=== PATIENT | female | born 1935 | race Caucasian/White ===

== ENCOUNTER 2021-12-28 12:10 | Outpatient (CLI) | payer MEDICARE | END 2021-12-28 12:11 | disposition home or self-care (01) | LOC: TBSIIMAG 12:10 | PROVIDERS: ATTEND Neurological Surgery | DX: M54.50 Low back pain, unspecified (principal); M51.26 Other intervertebral disc displacement, lumbar region; M48.061 Spinal stenosis, lumbar region without neurogenic claudication; M51.86 Other intervertebral disc disorders, lumbar region; M51.87 Other intervertebral disc disorders, lumbosacral region; M48.07 Spinal stenosis, lumbosacral region | CPT/HCPCS: 72148 ==

== ENCOUNTER 2024-05-26 20:15 | Emergency (ER) | payer MEDICARE ==
[2024-05-26 21:08] LABS: #Basophils Less than 0.03 10x3/uL (0.0-0.2); %Basophils 0.1 % (0.0-1.0); %Eosinophils 7.1 % (0.0-10.0); %Lymphocytes 26.4 % (21.0-51.0); %Neutrophils 56.1 % (42.0-75.0); Hematocrit 39.1 % (36.0-47.0); Hemoglobin 12.4 g/dL (12.0-16.0); Mean Corpuscular HGB CONC 31.7 g/dL (32.0-36.0); Mean Corpuscular Hemoglobin 29.5 pg (27.0-31.0); Mean Corpuscular Volume 93.1 fL (78.0-98.0); Mean Platelet Volume 10.9 fL (7.4-10.4); Platelet Count 246 10x3/uL (130-400)
[2024-05-26 21:31] LABS: ALT (SGPT) 15 U/L (8-55); AST (SGOT) 27 U/L (5-34); Albumin 3.4 g/dL (3.4-4.8); Alkaline Phosphatase 66 U/L (40-110); Anion Gap 12 mmol/L (10-20); BUN (Urea Nitrogen) 56 mg/dL (9.8-20.1); Bilirubin, Total 0.3 mg/dL (0.2-1.2); Calc. Creatinine Clearance 0 mL/min (70-130); Calcium 10.4 mg/dL (7.8-10.44); Carbon Dioxide 18 mmol/L (23-31); Chloride 114 mmol/L (98-107); Estimated GFR 17; Globulin 3.9 g/dL (2.4-3.5); Glucose 145 mg/dL (83-110); Lipase 33 U/L (8-78); Magnesium 1.9 mg/dL (1.6-2.6); Potassium 4.2 mmol/L (3.5-5.1); Protein, Total 7.3 g/dL (5.8-8.1); Sodium 140 mmol/L (136-145)
[2024-05-26 21:40] LABS: Troponin I 0.029 ng/mL (< 0.028)
[2024-05-26 22:29] LABS: Troponin I 0.027 ng/mL (< 0.028)
[2024-05-26] MEDS ORDERED: hydrALAZINE 20 MG/ML VIAL ONE (22:38)
== END 2024-05-26 23:41 | disposition home or self-care (01) ==
LOC: ERS 20:15
DX: I10 Essential (primary) hypertension (principal); Z79.899 Other long term (current) drug therapy
CPT/HCPCS: 71045; 80053; 83690; 83735; 83880; 84484 ×2; 85025; 93005; 94760; 96374; 99284; J0360; 36415

== ENCOUNTER 2024-09-13 12:11 | Inpatient (IN) | payer MEDICARE ==
[2024-09-13 13:35] LABS: Bacteria/HPF 4+ HPF (None Seen); Bilirubin Negative (Negative); Blood, Urine 1+ (Negative); CAUTI Indications for Culture Dysuria,urgency,freq; Clarity Extra Turbid (Clear); Glucose, Urine (Dipstick) 70 mg/dL (Negative); Ketone, Urine Negative (Negative); Leukocyte 500 Leu/uL (Negative); Nitrite Negative (Negative); Protein, Urine (Dipstick) 300 mg/dL (Neg-Trace); Specific Gravity, Urine 1.004 (1.002-1.036); Squamous Epithelial None Seen HPF (0-3); Urobilinogen Normal mg/dL (Less than 2); WBC/HPF Greater than 50 HPF (0-3)
[2024-09-13 13:42] LABS: Urine Culture Reflex Yes Yes
[2024-09-13 13:50] LABS: Troponin I 0.048 ng/mL (< 0.028)
[2024-09-13 14:16] LABS: #Basophils Less than 0.03 10x3/uL (0.0-0.2); %Basophils 0.3 % (0.0-1.0); %Eosinophils 6.1 % (0.0-10.0); %Lymphocytes 28.2 % (21.0-51.0); %Monocytes 12.7 % (0.0-10.0); %Neutrophils 52.1 % (42.0-75.0); Hematocrit 35.4 % (36.0-47.0); Hemoglobin 11.3 g/dL (12.0-16.0); Mean Corpuscular HGB CONC 31.9 g/dL (32.0-36.0); Mean Corpuscular Hemoglobin 29.9 pg (27.0-31.0); Mean Corpuscular Volume 93.7 fL (78.0-98.0); Platelet Count 207 10x3/uL (130-400); RBC Distribution Width 13.7 % (11.5-14.5); Red Blood Cell (RBC) Count 3.78 mill/uL (4.20-5.40)
[2024-09-13 14:32] LABS: ALT (SGPT) 23 U/L (8-55); AST (SGOT) 32 U/L (5-34); Albumin 3.2 g/dL (3.4-4.8); Alkaline Phosphatase 69 U/L (40-110); Anion Gap 13 mmol/L (10-20); BUN (Urea Nitrogen) 54 mg/dL (9.8-20.1); Bilirubin, Total 0.4 mg/dL (0.2-1.2); Calc. Creatinine Clearance 0 mL/min (70-130); Calcium 9.5 mg/dL (7.8-10.44); Carbon Dioxide 20 mmol/L (23-31); Chloride 113 mmol/L (98-107); Estimated GFR 12; Globulin 4.1 g/dL (2.4-3.5); Glucose 126 mg/dL (83-110); Protein, Total 7.3 g/dL (5.8-8.1); Sodium 142 mmol/L (136-145)
[2024-09-13] MEDS ORDERED: cefTRIAXone (ROCEPHIN) 2 GM VIAL ONE (15:16)
[2024-09-13] MEDS ORDERED: Sodium Chloride 0.9% 100 ML ONE (15:17)
[2024-09-13] MEDS ORDERED: Dextrose 50% Abboject 50 ML SYRINGE SLOW IVP PRN (16:13)
[2024-09-13] MEDS ORDERED: Glucagon 1 MG/ML KIT IM PRN (16:13)
[2024-09-13] MEDS ORDERED: Dextrose 5% in Water 1,000 ML IV PRN (16:13)
[2024-09-13] MEDS: NIFEdipine XL 60 MG ER.TAB PO SCH (17:18)
[2024-09-13 17:26] VITALS: BMI 22.4
[2024-09-13 17:29] LABS: Troponin I 0.034 ng/mL (< 0.028)
[2024-09-13] MEDS: Metoprolol Tartrate 100 MG TAB PO SCH (17:51)
[2024-09-13] MEDS ORDERED: hydrALAZINE 25 MG TAB ONE (18:07)
[2024-09-13] MEDS: hydrALAZINE 25 MG TAB PO SCH (18:42)
[2024-09-13] MEDS: Sodium Bicarbonate 75 MEQ in Dextrose 5 %-0.45 % NaCl 1,000 ML IV SCH (18:43)
[2024-09-13 21:33] LABS: Troponin I 0.043 ng/mL (< 0.028)
[2024-09-13] MEDS: Apixaban 2.5 MG TAB PO SCH (21:55)
[2024-09-14 05:10] LABS: #Basophils Less than 0.03 10x3/uL (0.0-0.2); %Basophils 0.3 % (0.0-1.0); %Eosinophils 8.6 % (0.0-10.0); %Lymphocytes 27.9 % (21.0-51.0); %Monocytes 11.9 % (0.0-10.0); Hematocrit 29.8 % (36.0-47.0); Hemoglobin 9.3 g/dL (12.0-16.0); Mean Corpuscular HGB CONC 31.2 g/dL (32.0-36.0); Mean Corpuscular Volume 96.1 fL (78.0-98.0); Mean Platelet Volume 11.2 fL (7.4-10.4); Platelet Count 218 10x3/uL (130-400); RBC Distribution Width 13.6 % (11.5-14.5)
[2024-09-14 05:29] LABS: Anion Gap 11 mmol/L (10-20); BUN (Urea Nitrogen) 50 mg/dL (9.8-20.1); Calc. Creatinine Clearance 11 mL/min (70-130); Calcium 8.7 mg/dL (7.8-10.44); Carbon Dioxide 19 mmol/L (23-31); Chloride 113 mmol/L (98-107); Estimated GFR 13; Glucose 142 mg/dL (83-110); Potassium 4.3 mmol/L (3.5-5.1); Sodium 139 mmol/L (136-145)
[2024-09-14] MEDS ORDERED: Epoetin (ESRD) 20,000 UNITS/ML MDV SC SCH (08:30)
[2024-09-14] MEDS: NIFEdipine XL 90 MG ER.TAB PO SCH (08:46)
[2024-09-14] MEDS ORDERED: Metoprolol Tartrate 100 MG TAB PO SCH (09:00)
[2024-09-14] MEDS: Sodium Bicarbonate 75 MEQ in Dextrose 5 %-0.45 % NaCl 1,000 ML IV SCH (09:42)
[2024-09-14] MEDS: Albumin 25% 25 GM (100 mL) BOT IVPB SCH (12:46)
[2024-09-14] MEDS: Insulin Lispro 100 UNIT/ML 10 ML VIAL SC PRN (13:23)
[2024-09-14] MEDS: EPOETIN ALFA-EPBX (ESRD) 10,000 UNITS/ML VIAL SC SCH (14:01)
[2024-09-14] MEDS: Ferrous Sulfate 325 MG TAB PO SCH (16:11)
[2024-09-14] MEDS: hydrALAZINE 25 MG TAB PO SCH (16:11)
[2024-09-14] MEDS: cefTRIAXone\\ROCEPHIN 1 GM in Sodium Chloride 0.9% 100 ML IVPB SCH (16:14)
[2024-09-14] MEDS: Nitroglycerin 0.4 MG TAB (25 Tab Bottle) SL PRN (20:17)
[2024-09-14] MEDS: Nitroglycerin 2% Ointment 1 INCH/1 GM Packet TOP SCH (20:28)
[2024-09-14] MEDS: Nitroglycerin 0.4 MG TAB (25 Tab Bottle) ONE (20:38)
[2024-09-14] MEDS ORDERED: Insulin Glargine 30 UNITS/0.3 ML VIAL SC SCH (21:00)
[2024-09-14 21:12] LABS: #Basophils Less than 0.03 10x3/uL (0.0-0.2); %Basophils 0.1 % (0.0-1.0); %Eosinophils 5.3 % (0.0-10.0); %Lymphocytes 20.3 % (21.0-51.0); %Neutrophils 64.9 % (42.0-75.0); Hematocrit 27.5 % (36.0-47.0); Hemoglobin 8.7 g/dL (12.0-16.0); Mean Corpuscular HGB CONC 31.6 g/dL (32.0-36.0); Mean Corpuscular Hemoglobin 30.2 pg (27.0-31.0); Mean Corpuscular Volume 95.5 fL (78.0-98.0); Mean Platelet Volume 11.3 fL (7.4-10.4); Platelet Count 209 10x3/uL (130-400); RBC Distribution Width 13.5 % (11.5-14.5); Red Blood Cell (RBC) Count 2.88 mill/uL (4.20-5.40)
[2024-09-14 21:27] LABS: ALT (SGPT) 16 U/L (8-55); AST (SGOT) 30 U/L (5-34); Albumin 3.3 g/dL (3.4-4.8); Alkaline Phosphatase 53 U/L (40-110); Anion Gap 13 mmol/L (10-20); BUN (Urea Nitrogen) 50 mg/dL (9.8-20.1); Bilirubin, Total 0.3 mg/dL (0.2-1.2); Calc. Creatinine Clearance 11 mL/min (70-130); Calcium 8.7 mg/dL (7.8-10.44); Carbon Dioxide 18 mmol/L (23-31); Chloride 109 mmol/L (98-107); Estimated GFR 11; Globulin 2.8 g/dL (2.4-3.5); Glucose 230 mg/dL (83-110); Potassium 4.3 mmol/L (3.5-5.1); Protein, Total 6.1 g/dL (5.8-8.1); Sodium 136 mmol/L (136-145)
[2024-09-14 21:31] LABS: Troponin I 0.026 ng/mL (< 0.028)
[2024-09-14] MEDS ORDERED: hydrALAZINE 25 MG TAB PO PRN (21:40)
[2024-09-14] MEDS: Insulin Glargine 30 UNITS/0.3 ML VIAL SC SCH (22:11)
[2024-09-14] MEDS: hydrALAZINE 20 MG/ML VIAL SLOW IVP SCH (22:19)
[2024-09-14 23:45] LABS: Troponin I 0.026 ng/mL (< 0.028)
[2024-09-15] MEDS: Ondansetron ODT 4 MG TAB PO PRN (00:53)
[2024-09-15 05:08] LABS: #Basophils 0.03 10x3/uL (0.0-0.2); %Basophils 0.3 % (0.0-1.0); %Eosinophils 2.1 % (0.0-10.0); %Lymphocytes 16.9 % (21.0-51.0); %Monocytes 11.7 % (0.0-10.0); %Neutrophils 68.7 % (42.0-75.0); Hematocrit 27.6 % (36.0-47.0); Hemoglobin 8.8 g/dL (12.0-16.0); Mean Corpuscular HGB CONC 31.9 g/dL (32.0-36.0); Mean Corpuscular Hemoglobin 30.4 pg (27.0-31.0); Mean Corpuscular Volume 95.5 fL (78.0-98.0); Mean Platelet Volume 11.1 fL (7.4-10.4); Platelet Count 198 10x3/uL (130-400); RBC Distribution Width 13.7 % (11.5-14.5); Red Blood Cell (RBC) Count 2.89 mill/uL (4.20-5.40)
[2024-09-15 05:27] LABS: Anion Gap 13 mmol/L (10-20); BUN (Urea Nitrogen) 51 mg/dL (9.8-20.1); Calc. Creatinine Clearance 11 mL/min (70-130); Calcium 8.9 mg/dL (7.8-10.44); Carbon Dioxide 19 mmol/L (23-31); Chloride 110 mmol/L (98-107); Estimated GFR 11; Glucose 129 mg/dL (83-110); Potassium 4.1 mmol/L (3.5-5.1); Sodium 138 mmol/L (136-145)
[2024-09-15 05:30] LABS: ALT (SGPT) 16 U/L (8-55); AST (SGOT) 25 U/L (5-34); Albumin 3.6 g/dL (3.4-4.8); Alkaline Phosphatase 52 U/L (40-110); Anion Gap 13 mmol/L (10-20); BUN (Urea Nitrogen) 51 mg/dL (9.8-20.1); Bilirubin, Total 0.4 mg/dL (0.2-1.2); Calc. Creatinine Clearance 11 mL/min (70-130); Carbon Dioxide 19 mmol/L (23-31); Chloride 110 mmol/L (98-107); Estimated GFR 11; Globulin 2.8 g/dL (2.4-3.5); Glucose 131 mg/dL (83-110); Phosphorus 4.4 mg/dL (2.3-4.7); Potassium 4.1 mmol/L (3.5-5.1); Protein, Total 6.4 g/dL (5.8-8.1); Sodium 138 mmol/L (136-145)
[2024-09-15] MEDS: Levothyroxine Sodium 125 MCG TAB PO SCH (06:02)
[2024-09-15] MEDS ORDERED: Sodium Chloride 0.9% 1,000 ML IV SCH (09:30)
[2024-09-15] MEDS ORDERED: Heparin 10,000 UNITS/ 10 ML VIAL ONE (09:52)
[2024-09-15] MEDS: Ipratropium/Albuterol 3 ML NEB NEB PRN (12:00)
[2024-09-15] MEDS: Acetaminophen 325 MG TAB PO PRN (15:38)
[2024-09-15 16:58] LABS: HBSAB Concentration 41.42 mIU/mL; HBsAg Index 0.38 S/CO (0-0.99); Hep B Core Total Ab NONREACTIVE (NonReactive); Hep B Core Total Index 0.13 S/CO (0-0.79); Hep B Surf AB REACTIVE (NonReactive); Hep B Surf Ag NONREACTIVE S/CO (NonReactive); Hep C IgG Ab NONREACTIVE S/CO (NonReactive); Hep C Index 0.07 S/CO (0-0.79)
[2024-09-15] MEDS: Sodium Bicarbonate Tab 325 MG TAB PO SCH (18:06)
[2024-09-15] MEDS ORDERED: Dextrose 5% in Water 1,000 ML IV PRN (21:59)
[2024-09-15] MEDS ORDERED: Dextrose 50% Abboject 50 ML SYRINGE SLOW IVP PRN (21:59)
[2024-09-15] MEDS ORDERED: Glucagon 1 MG/ML KIT IM PRN (21:59)
[2024-09-15] MEDS: Tuberculin PPD 0.1 ML SYRINGE (10 TEST VIAL) I-DERMAL SCH (22:13)
[2024-09-15] MEDS: Insulin Lispro 100 UNIT/ML 10 ML VIAL SC PRN (22:13)
[2024-09-15] MEDS ORDERED: hydrALAZINE 20 MG/ML VIAL SLOW IVP SCH (23:45)
[2024-09-16] MEDS: hydrALAZINE 20 MG/ML VIAL SLOW IVP PRN (00:08)
[2024-09-16 04:32] LABS: #Basophils Less than 0.03 10x3/uL (0.0-0.2); %Basophils 0.2 % (0.0-1.0); %Eosinophils 0.3 % (0.0-10.0); %Lymphocytes 16.8 % (21.0-51.0); %Neutrophils 68.4 % (42.0-75.0); Hematocrit 27.6 % (36.0-47.0); Hemoglobin 8.6 g/dL (12.0-16.0); Mean Corpuscular HGB CONC 31.2 g/dL (32.0-36.0); Mean Corpuscular Hemoglobin 30.1 pg (27.0-31.0); Mean Corpuscular Volume 96.5 fL (78.0-98.0); Mean Platelet Volume 11.5 fL (7.4-10.4); Platelet Count 184 10x3/uL (130-400); RBC Distribution Width 13.7 % (11.5-14.5); Red Blood Cell (RBC) Count 2.86 mill/uL (4.20-5.40)
[2024-09-16 04:46] LABS: ALT (SGPT) 12 U/L (8-55); AST (SGOT) 19 U/L (5-34); Albumin 3.2 g/dL (3.4-4.8); Alkaline Phosphatase 45 U/L (40-110); Anion Gap 11 mmol/L (10-20); BUN (Urea Nitrogen) 38 mg/dL (9.8-20.1); Bilirubin, Total 0.6 mg/dL (0.2-1.2); Calc. Creatinine Clearance 13 mL/min (70-130); Carbon Dioxide 25 mmol/L (23-31); Chloride 104 mmol/L (98-107); Estimated GFR 14; Globulin 3.1 g/dL (2.4-3.5); Glucose 126 mg/dL (83-110); Potassium 4.1 mmol/L (3.5-5.1); Protein, Total 6.3 g/dL (5.8-8.1); Sodium 136 mmol/L (136-145)
[2024-09-16] MEDS ORDERED: Heparin 10,000 UNITS/ 10 ML VIAL ONE (08:49)
[2024-09-17 04:34] LABS: #Basophils Less than 0.03 10x3/uL (0.0-0.2); %Basophils 0.2 % (0.0-1.0); %Eosinophils 3.8 % (0.0-10.0); %Lymphocytes 16.7 % (21.0-51.0); %Monocytes 13.1 % (0.0-10.0); %Neutrophils 65.8 % (42.0-75.0); Hematocrit 27.3 % (36.0-47.0); Hemoglobin 8.7 g/dL (12.0-16.0); Mean Corpuscular HGB CONC 31.9 g/dL (32.0-36.0); Mean Corpuscular Hemoglobin 29.8 pg (27.0-31.0); Mean Corpuscular Volume 93.5 fL (78.0-98.0); Mean Platelet Volume 11.5 fL (7.4-10.4); Platelet Count 173 10x3/uL (130-400); RBC Distribution Width 13.4 % (11.5-14.5); Red Blood Cell (RBC) Count 2.92 mill/uL (4.20-5.40)
[2024-09-17 04:53] LABS: Anion Gap 12 mmol/L (10-20); BUN (Urea Nitrogen) 30 mg/dL (9.8-20.1); Calc. Creatinine Clearance 12 mL/min (70-130); Calcium 8.6 mg/dL (7.8-10.44); Carbon Dioxide 25 mmol/L (23-31); Chloride 101 mmol/L (98-107); Estimated GFR 13; Glucose 147 mg/dL (83-110); Sodium 134 mmol/L (136-145)
[2024-09-17] MEDS ORDERED: Heparin 10,000 UNITS/ 10 ML VIAL ONE (08:57)
[2024-09-17] MEDS: Heparin 5,000 UNITS/ML VIAL SC SCH (09:48)
[2024-09-18 05:59] LABS: Chloride 100 mmol/L (98-107); Potassium 3.7 mmol/L (3.5-5.1); Sodium 135 mmol/L (136-145)
[2024-09-18 06:00] LABS: Calcium 8.7 mg/dL (7.8-10.44)
[2024-09-18 06:01] LABS: Glucose 143 mg/dL (83-110)
[2024-09-18 06:02] LABS: Anion Gap 11 mmol/L (10-20); Carbon Dioxide 28 mmol/L (23-31)
[2024-09-18 06:04] LABS: BUN (Urea Nitrogen) 17 mg/dL (9.8-20.1); Calc. Creatinine Clearance 14 mL/min (70-130); Estimated GFR 16
[2024-09-18] MEDS ORDERED: Lidocaine 2% PF 5 ML VIAL ONE (06:27)
[2024-09-18] MEDS ORDERED: EPINEPHrine 1 MG/ML VIAL ONE (06:27)
[2024-09-18] MEDS ORDERED: Heparin 10,000 UNITS/ 10 ML VIAL ONE ×3 (06:27→08:59)
[2024-09-18] MEDS ORDERED: Heparin 5,000 UNITS/ML VIAL ONE (06:27)
[2024-09-18] MEDS ORDERED: Bupivacaine PF 0.5% 30 ML VIAL ONE (06:28)
[2024-09-18] MEDS ORDERED: PROPOFOL 20 ML ONE (06:32)
[2024-09-18] MEDS ORDERED: PHENYLEPHRINE-NS 100 MCG/ML 10 ML SYRINGE ONE (06:32)
[2024-09-18] MEDS ORDERED: fentaNYL 50 mcg/mL 1 mL Vial ONE ×3 (06:32→10:34)
[2024-09-18] MEDS ORDERED: Lidocaine 1% PF 5 ML VIAL ONE (06:32)
[2024-09-18] MEDS ORDERED: Glycopyrrolate 0.2 MG/ML 5 ML SYRINGE ONE (08:03)
[2024-09-18] MEDS ORDERED: Protamine Sulfate 50 MG/5 ML VIAL ONE (08:53)
[2024-09-18] MEDS ORDERED: HYDROmorphone 2 MG/ML VIAL ONE (09:09)
[2024-09-18] MEDS ORDERED: Ondansetron PF 4 MG/2 ML Vial ONE (09:45)
[2024-09-18] MEDS ORDERED: traMADol HCl 50 MG TAB PO PRN (10:12)
[2024-09-18] MEDS: Acetaminophen 500 MG TAB PO SCH (14:32)
[2024-09-18] MEDS: READ PPD TEST SITE PO SCH (15:52)
[2024-09-18] MEDS: hydrALAZINE 20 MG/ML VIAL SLOW IVP PRN (20:48)
[2024-09-19] MEDS: Apixaban 2.5 MG TAB PO SCH (08:16)
[2024-09-20] MEDS ORDERED: Heparin 10,000 UNITS/ 10 ML VIAL ONE (09:51)
[2024-09-20 12:28] VITALS: BMI 23.6
[2024-09-20 16:04] VITALS: BP 151/68; TEMP 98
== END 2024-09-20 17:10 | DRG 673 ==
LOC: ERS 12:11 → ERHOLD 15:55 → 2NO 20:01
PROVIDERS: ADMIT Internal Medicine; ATTEND Family Medicine
PROC: 30233J1 Transfusion of Nonautologous Serum Albumin into Peripheral Vein, Percutaneous Approach (ICD-10-PCS; 2024-09-14)
PROC: 06HY33Z Insertion of Infusion Device into Lower Vein, Percutaneous Approach (ICD-10-PCS; principal; 2024-09-15)
PROC: 0JH63XZ Insertion of Tunneled Vascular Access Device into Chest Subcutaneous Tissue and Fascia, Percutaneous Approach (ICD-10-PCS; 2024-09-18)
PROC: 02HV33Z Insertion of Infusion Device into Superior Vena Cava, Percutaneous Approach (ICD-10-PCS; 2024-09-18)
PROC: 3E033XZ Introduction of Vasopressor into Peripheral Vein, Percutaneous Approach (ICD-10-PCS; 2024-09-18)
PROC: 5A1D70Z Performance of Urinary Filtration, Intermittent, Less than 6 Hours Per Day (ICD-10-PCS; 2024-09-20)
DX: N17.9 Acute kidney failure, unspecified (principal); I50.33 Acute on chronic diastolic (congestive) heart failure; E87.20 Acidosis, unspecified; N39.0 Urinary tract infection, site not specified; I48.20 Chronic atrial fibrillation, unspecified; I13.2 Hypertensive heart and chronic kidney disease with heart failure and with stage 5 chronic kidney disease, or end stage renal disease; E86.0 Dehydration; I16.0 Hypertensive urgency; Z88.8 Allergy status to other drugs, medicaments and biological substances; E78.5 Hyperlipidemia, unspecified; E11.22 Type 2 diabetes mellitus with diabetic chronic kidney disease; Z90.710 Acquired absence of both cervix and uterus; Z98.890 Other specified postprocedural states; Z79.01 Long term (current) use of anticoagulants; Z79.899 Other long term (current) drug therapy; D63.1 Anemia in chronic kidney disease; E03.9 Hypothyroidism, unspecified; Z79.4 Long term (current) use of insulin; N18.6 End stage renal disease; Z99.2 Dependence on renal dialysis
CPT/HCPCS: 36415; 36416; 71045; 80048; 80053; 81001; 83605; 83880; 83970; 84100; 84484; 85025; 86580; 86704; 86706; 86803; 86850; 86900; 86901; 87040; 87077; 87086; 87186; 87340; 90935; 93005; 93010; 93970; 94640; 96361; 96365; A6258; C1750; C1751; G0257; J0171; J0360; J0665; J0696; J1642; J1644; J1815; J2405; J2704; J2720; J3010; J7042; J7620; P9047; Q0162; Q5105

== ENCOUNTER 2024-12-27 08:51 | Inpatient (IN) | payer MEDICARE ==
[2024-12-27 10:34] LABS: #Basophils Less than 0.03 10x3/uL (0.0-0.2); #Eosinophils Less than 0.03 10x3/uL (0.0-0.7); %Basophils 0.1 % (0.0-1.0); %Lymphocytes 3.2 % (21.0-51.0); %Monocytes 6.1 % (0.0-10.0); %Neutrophils 89.7 % (42.0-75.0); Hematocrit 35.5 % (36.0-47.0); Hemoglobin 11.6 g/dL (12.0-16.0); Mean Corpuscular HGB CONC 32.7 g/dL (32.0-36.0); Mean Corpuscular Hemoglobin 29.6 pg (27.0-31.0); Mean Corpuscular Volume 90.6 fL (78.0-98.0); Mean Platelet Volume 10.6 fL (7.4-10.4); Platelet Count 182 10x3/uL (130-400); RBC Distribution Width 14.9 % (11.5-14.5); Red Blood Cell (RBC) Count 3.92 mill/uL (4.20-5.40)
[2024-12-27 10:49] LABS: Bilirubin Negative (Negative); Blood, Urine Negative (Negative); CAUTI Indications for Culture Pelvic or flank pain; Clarity Clear (Clear); Glucose, Urine (Dipstick) 150 mg/dL (Negative); Ketone, Urine Negative (Negative); Leukocyte 25 Leu/uL (Negative); Nitrite Negative (Negative); Protein, Urine (Dipstick) 600 mg/dL (Neg-Trace); RBC/HPF 0-3 HPF (0-3); Specific Gravity, Urine 1.019 (1.002-1.036); Squamous Epithelial 0-3 HPF (0-3); Urobilinogen Normal mg/dL (Less than 2)
[2024-12-27 10:51] LABS: Bacteria/HPF 1+ HPF (None Seen)
[2024-12-27 10:52] LABS: Urine Culture Reflex Yes Yes
[2024-12-27] MEDS ORDERED: Ondansetron PF 4 MG/2 ML Vial ONE (10:53)
[2024-12-27 10:54] LABS: ALT (SGPT) 10 U/L (Less than 34); AST (SGOT) 37 U/L (11-34); Albumin 3.2 g/dL (3.1-4.5); Alkaline Phosphatase 62 U/L (40-110); Anion Gap 17 mmol/L (10-20); BUN (Urea Nitrogen) 28 mg/dL (9.8-20.1); Bilirubin, Total 0.7 mg/dL (0.3-1.2); Calc. Creatinine Clearance 0 mL/min (70-130); Calcium 9.6 mg/dL (7.8-10.44); Carbon Dioxide 24 mmol/L (23-31); Chloride 102 mmol/L (98-107); Estimated GFR 11; Globulin 4.2 g/dL (2.4-3.5); Glucose 188 mg/dL (83-110); Lipase 15 U/L (8-78); Magnesium 1.9 mg/dL (1.6-2.6); Potassium 3.9 mmol/L (3.5-5.1); Protein, Total 7.4 g/dL (5.8-8.1); Sodium 139 mmol/L (136-145)
[2024-12-27] MEDS ORDERED: cefTRIAXone (ROCEPHIN) 2 GM VIAL ONE (11:16)
[2024-12-27] MEDS ORDERED: Sodium Chloride 0.9% 100 ML ONE (11:16)
[2024-12-27] MEDS ORDERED: Azithromycin 500 MG VIAL ONE (11:16)
[2024-12-27] MEDS ORDERED: Heparin 10,000 UNITS/ 10 ML VIAL ONE (11:30)
[2024-12-27 12:03] VITALS: BMI 22.4
[2024-12-27] MEDS ORDERED: Dextrose 50% Abboject 50 ML SYRINGE SLOW IVP PRN (12:41)
[2024-12-27] MEDS ORDERED: Insulin Lispro 100 UNIT/ML 10 ML VIAL SC PRN (12:41)
[2024-12-27] MEDS ORDERED: Dextrose 5% in Water 1,000 ML IV PRN (12:41)
[2024-12-27] MEDS ORDERED: Glucagon 1 MG/ML KIT IM PRN (12:41)
[2024-12-27] MEDS ORDERED: Calcium Carbonate 500 MG ChewTAB PO PRN (12:41)
[2024-12-27] MEDS ORDERED: Acetaminophen 650 MG Suppository PR PRN (12:41)
[2024-12-27] MEDS ORDERED: Acetaminophen 325 MG TAB PO PRN (12:41)
[2024-12-27] MEDS ORDERED: Ipratropium/Albuterol 3 ML NEB NEB PRN (12:44)
[2024-12-27] MEDS: Donepezil HCl 10 MG TAB PO SCH (21:22)
[2024-12-27] MEDS: Apixaban 2.5 MG TAB PO SCH (21:22)
[2024-12-27] MEDS: hydrALAZINE 25 MG TAB PO SCH (21:22)
[2024-12-27] MEDS: Famotidine/PF 20 mg/2ml Vial SLOW IVP SCH (21:22)
[2024-12-27 22:23] LABS: Legionella Urinary Ag Negative (Negative); Strep pneumo Urine Ag NEGATIVE (NEGATIVE)
[2024-12-28 05:36] LABS: #Basophils 0.03 10x3/uL (0.0-0.2); %Basophils 0.3 % (0.0-1.0); %Eosinophils 2.1 % (0.0-10.0); %Lymphocytes 15.1 % (21.0-51.0); %Monocytes 6.6 % (0.0-10.0); %Neutrophils 75.5 % (42.0-75.0); Hematocrit 30.5 % (36.0-47.0); Hemoglobin 9.8 g/dL (12.0-16.0); Mean Corpuscular HGB CONC 32.1 g/dL (32.0-36.0); Mean Corpuscular Hemoglobin 29.7 pg (27.0-31.0); Mean Corpuscular Volume 92.4 fL (78.0-98.0); Mean Platelet Volume 11.1 fL (7.4-10.4); Platelet Count 169 10x3/uL (130-400); RBC Distribution Width 14.9 % (11.5-14.5)
[2024-12-28] MEDS: Levothyroxine Sodium 125 MCG TAB PO SCH (06:03)
[2024-12-28 06:16] LABS: Anion Gap 14 mmol/L (10-20); BUN (Urea Nitrogen) 15 mg/dL (9.8-20.1); Calc. Creatinine Clearance 15 mL/min (70-130); Calcium 8.8 mg/dL (7.8-10.44); Carbon Dioxide 29 mmol/L (23-31); Chloride 101 mmol/L (98-107); Estimated GFR 17; Glucose 109 mg/dL (83-110); Potassium 3.6 mmol/L (3.5-5.1); Sodium 140 mmol/L (136-145)
[2024-12-28] MEDS: Metoprolol Succinate XL 50 MG ER.TAB PO SCH (09:05)
[2024-12-28] MEDS: Insulin Lispro 100 UNIT/ML 10 ML VIAL SC PRN (12:25)
[2024-12-28] MEDS: cefTRIAXone\\ROCEPHIN 1 GM in Sodium Chloride 0.9% 100 ML IVPB SCH (12:25)
[2024-12-28] MEDS: Azithromycin 500 MG in Sodium Chloride 0.9% 250 ML 250 ML IVPB SCH (12:25)
[2024-12-28 12:56] LABS: Anion Gap 14 mmol/L (10-20); BUN (Urea Nitrogen) 21 mg/dL (9.8-20.1); Calc. Creatinine Clearance 13 mL/min (70-130); Calcium 8.9 mg/dL (7.8-10.44); Carbon Dioxide 28 mmol/L (23-31); Chloride 98 mmol/L (98-107); Estimated GFR 14; Glucose 138 mg/dL (83-110); Potassium 3.7 mmol/L (3.5-5.1); Sodium 136 mmol/L (136-145)
[2024-12-28] MEDS: Labetalol HCl 100 MG/20 ML VIAL SLOW IVP SCH (22:53)
[2024-12-29] MEDS: hydrALAZINE 25 MG TAB PO SCH ×3 (04:36→14:07)
[2024-12-29] MEDS: Metoprolol Succinate XL 50 MG ER.TAB PO SCH (04:37)
[2024-12-29 06:03] LABS: #Basophils Less than 0.03 10x3/uL (0.0-0.2); %Basophils 0.1 % (0.0-1.0); %Eosinophils 3.9 % (0.0-10.0); %Lymphocytes 23.6 % (21.0-51.0); %Monocytes 11.5 % (0.0-10.0); %Neutrophils 60.5 % (42.0-75.0); Hematocrit 29.2 % (36.0-47.0); Hemoglobin 9.4 g/dL (12.0-16.0); Mean Corpuscular HGB CONC 32.2 g/dL (32.0-36.0); Mean Corpuscular Hemoglobin 29.5 pg (27.0-31.0); Mean Corpuscular Volume 91.5 fL (78.0-98.0); Platelet Count 159 10x3/uL (130-400); RBC Distribution Width 14.6 % (11.5-14.5); Red Blood Cell (RBC) Count 3.19 mill/uL (4.20-5.40)
[2024-12-29] MEDS ORDERED: Labetalol HCl 100 MG/20 ML VIAL SLOW IVP PRN (06:10)
[2024-12-29] MEDS: Cefdinir 300 MG CAP PO SCH (09:15)
[2024-12-29] MEDS: Nitroglycerin 2% Ointment 1 INCH/1 GM Packet TOP SCH (16:11)
[2024-12-29] MEDS: NIFEdipine XL 30 MG ER.TAB PO SCH (17:03)
[2024-12-29] MEDS: EPOETIN ALFA-EPBX (ESRD) 10,000 UNITS/ML VIAL SC SCH (17:04)
[2024-12-29] MEDS: cloNIDine 0.1 MG TAB PO SCH (20:41)
[2024-12-29] MEDS: Loratadine 10 MG TAB PO SCH (20:41)
[2024-12-29] MEDS: Insulin Glargine 30 UNITS/0.3 ML VIAL SC SCH (20:42)
[2024-12-30 07:11] LABS: #Basophils Less than 0.03 10x3/uL (0.0-0.2); %Basophils 0.2 % (0.0-1.0); %Eosinophils 5.7 % (0.0-10.0); %Lymphocytes 24.1 % (21.0-51.0); %Monocytes 11.4 % (0.0-10.0); %Neutrophils 58.4 % (42.0-75.0); Hematocrit 30.1 % (36.0-47.0); Mean Corpuscular HGB CONC 33.2 g/dL (32.0-36.0); Mean Corpuscular Hemoglobin 29.6 pg (27.0-31.0); Mean Corpuscular Volume 89.1 fL (78.0-98.0); Mean Platelet Volume 11.5 fL (7.4-10.4); Platelet Count 177 10x3/uL (130-400); RBC Distribution Width 14.6 % (11.5-14.5); Red Blood Cell (RBC) Count 3.38 mill/uL (4.20-5.40)
[2024-12-30 07:38] LABS: Anion Gap 13 mmol/L (10-20); BUN (Urea Nitrogen) 34 mg/dL (9.8-20.1); Calc. Creatinine Clearance 9 mL/min (70-130); Calcium 8.6 mg/dL (7.8-10.44); Carbon Dioxide 26 mmol/L (23-31); Chloride 99 mmol/L (98-107); Estimated GFR 9; Glucose 131 mg/dL (83-110); Potassium 3.2 mmol/L (3.5-5.1); Sodium 135 mmol/L (136-145)
[2024-12-30] MEDS ORDERED: Heparin 10,000 UNITS/ 10 ML VIAL ONE (09:35)
[2024-12-30] MEDS: NIFEdipine XL 30 MG ER.TAB PO SCH (12:48)
[2024-12-31 14:49] LABS: #Basophils Less than 0.03 10x3/uL (0.0-0.2); %Basophils 0.2 % (0.0-1.0); %Eosinophils 5.1 % (0.0-10.0); %Lymphocytes 25.5 % (21.0-51.0); %Monocytes 12.3 % (0.0-10.0); %Neutrophils 56.7 % (42.0-75.0); Hematocrit 30.6 % (36.0-47.0); Hemoglobin 9.8 g/dL (12.0-16.0); Mean Corpuscular Hemoglobin 29.2 pg (27.0-31.0); Mean Corpuscular Volume 91.1 fL (78.0-98.0); Mean Platelet Volume 10.7 fL (7.4-10.4); Platelet Count 180 10x3/uL (130-400); RBC Distribution Width 14.6 % (11.5-14.5); Red Blood Cell (RBC) Count 3.36 mill/uL (4.20-5.40)
[2024-12-31 15:06] LABS: Anion Gap 12 mmol/L (10-20); BUN (Urea Nitrogen) 19 mg/dL (9.8-20.1); Calc. Creatinine Clearance 11 mL/min (70-130); Calcium 8.5 mg/dL (7.8-10.44); Carbon Dioxide 26 mmol/L (23-31); Chloride 100 mmol/L (98-107); Estimated GFR 11; Glucose 196 mg/dL (83-110); Potassium 3.8 mmol/L (3.5-5.1); Sodium 134 mmol/L (136-145)
[2024-12-31] MEDS: Senokot S 8.6-50 MG TAB PO PRN (15:11)
[2024-12-31 15:12] LABS: Troponin I 0.038 ng/mL (< 0.028)
[2024-12-31 19:15] LABS: Bilirubin Negative (Negative); Blood, Urine Negative (Negative); CAUTI Indications for Culture Alt mental st,lethar; Clarity Turbid (Clear); Glucose, Urine (Dipstick) 300 mg/dL (Negative); Ketone, Urine Trace mg/dL (Negative); Leukocyte 75 Leu/uL (Negative); Nitrite Negative (Negative); Protein, Urine (Dipstick) 300 mg/dL (Neg-Trace); RBC/HPF 0-3 HPF (0-3); Specific Gravity, Urine 1.019 (1.002-1.036); Urobilinogen Normal mg/dL (Less than 2)
[2024-12-31 19:16] LABS: Bacteria/HPF 2+ HPF (None Seen); Urine Culture Reflex No No
[2025-01-01] MEDS ORDERED: Heparin 10,000 UNITS/ 10 ML VIAL ONE (09:27)
[2025-01-01 12:28] VITALS: TEMP 97.6
[2025-01-01 14:38] VITALS: BP 158/74
== END 2025-01-01 13:40 | disposition home or self-care (01) | DRG 871 ==
LOC: ERS 08:51 → MSONC 11:50 → ERHOLD 12:00 → MSONC 20:50 → OBSVTOIN 12-28 11:57
PROVIDERS: ADMIT Family Medicine; ATTEND Hospitalist
DX: A41.9 Sepsis, unspecified organism (principal); J18.9 Pneumonia, unspecified organism; N18.6 End stage renal disease; I13.2 Hypertensive heart and chronic kidney disease with heart failure and with stage 5 chronic kidney disease, or end stage renal disease; N30.00 Acute cystitis without hematuria; I50.32 Chronic diastolic (congestive) heart failure; J98.11 Atelectasis; T82.590A Other mechanical complication of surgically created arteriovenous fistula, initial encounter; F03.90 Unspecified dementia, unspecified severity, without behavioral disturbance, psychotic disturbance, mood disturbance, and anxiety; E11.22 Type 2 diabetes mellitus with diabetic chronic kidney disease; E78.5 Hyperlipidemia, unspecified; I48.0 Paroxysmal atrial fibrillation; E03.9 Hypothyroidism, unspecified; R53.1 Weakness; Z60.2 Problems related to living alone; Z88.8 Allergy status to other drugs, medicaments and biological substances; Z99.2 Dependence on renal dialysis; Z79.4 Long term (current) use of insulin; Z79.01 Long term (current) use of anticoagulants; Y82.8 Other medical devices associated with adverse incidents
CPT/HCPCS: 36415; 36416; 71045; 74176; 80048; 80053; 81001; 83605; 83690; 83735; 84484; 85025; 87040; 87086; 87400; 87449; 87899; 90935; 93005; 96375; G0257; G0378; J0456; J0696; J1644; J1815; J2405; J3490; J7050; Q5105